=== PATIENT | male | born 1960 | race Two or more races ===

== ENCOUNTER 2018-07-14 07:55 | Outpatient (CLI) | payer OTHER | END 2018-07-14 08:11 | disposition home or self-care (01) | LOC: NUCLEAR 07:55 | DX: I51.3 Intracardiac thrombosis, not elsewhere classified (principal) ==

== ENCOUNTER 2022-05-25 09:15 | Inpatient (IN) | payer OTHER ==
[~2022-05-25] VITALS: Ht 182.9 cm; Wt 45.4 kg
[2022-05-25] MEDS ORDERED: ELIQUIS5 MG PO (11:40)
[2022-05-25] MEDS ORDERED: ALDACTONE25 MG PO (11:41)
[2022-05-25] MEDS ORDERED: LASIX20 MG PO (11:41)
[2022-05-25] MEDS ORDERED: LIPITOR20 MG PO (11:41)
[2022-05-25] MEDS ORDERED: LOSARTAN POTASS25 MG PO (11:41)
[2022-05-25] MEDS ORDERED: NASAL MIST126 ML (11:42)
[2022-05-25] MEDS ORDERED: KAPSPARGO SPRI100 MG PO (11:42)
[2022-06-02] MEDS ORDERED: PROTONIX40 MG PO (08:22)
[2022-06-02] MEDS ORDERED: AMOX1TAB5 PO (08:22)
[2022-06-02] MEDS ORDERED: OXYC1TAB9 PO (08:24)
== END 2022-06-02 11:13 | disposition home or self-care (01) | DRG 331 ==
LOC: O/R 05-28 06:15 → SURH 05-28 09:15
PROVIDERS: ADMIT Surgery; ATTEND Surgery
PROC: 0DBP4ZZ Excision of Rectum, Percutaneous Endoscopic Approach (ICD-10-PCS; 2022-05-28)
PROC: 07BC4ZZ Excision of Pelvis Lymphatic, Percutaneous Endoscopic Approach (ICD-10-PCS; 2022-05-28)
PROC: 0DJD8ZZ Inspection of Lower Intestinal Tract, Via Natural or Artificial Opening Endoscopic (ICD-10-PCS; 2022-05-28)
PROC: 3E0F7SF Introduction of Other Gas into Respiratory Tract, Via Natural or Artificial Opening (ICD-10-PCS; 2022-05-28)
PROC: 0DTN4ZZ Resection of Sigmoid Colon, Percutaneous Endoscopic Approach (ICD-10-PCS; principal; 2022-05-28 10:00)
DX: C19 Malignant neoplasm of rectosigmoid junction (principal); R19.4 Change in bowel habit; R59.0 Localized enlarged lymph nodes; I11.9 Hypertensive heart disease without heart failure; I49.9 Cardiac arrhythmia, unspecified; G47.30 Sleep apnea, unspecified; Z95.810 Presence of automatic (implantable) cardiac defibrillator